=== PATIENT | female | born 1960 | race Caucasian/White ===

== ENCOUNTER 2016-12-04 16:48 | Emergency (ER) | payer BC ==
[~2016-12-04] VITALS: Ht 165.1 cm; Wt 122.5 kg
--- NOTE | ~2016-12-04 | CR72 ---
[facility] A Service of [facility] & [facility] RADIOLOGY TEXT RESULTS PATIENT: PORFIRIO REYES LOCATION: [facility] : 62 UNIT #: [id number] AGE: [address]: Mamadou Shaffer MD SEX: F ORDER DR: [id number] [facility] [address] [place], [place] [address] [id number] E MR#: [id number] Acc #: [id number] NAME: PORFIRIO REYES. : 1960 SEX: F STUDY DATE/TIME: 12/04/2016 18:26 UNIT: [facility] ROOM: STUDY DESCRIPTION: CR Chest Single View Portable Attending Physician: Mamadou Shaffer M.D. Ordering Physician: Mamadou Shaffer M.D. Primary Care Physician: Leni Law M.D. MEDICAL IMAGING REPORT This report is preliminary unless electronic signature is present EXAM Portable chest radiograph. INDICATION Shortness of breath with activity starting December 04, 2016. FINDINGS The patient does appear to have some cardiomegaly but I do not see any evidence of vascular congestion. No pneumothorax or pleural effusion is seen. Overall lung volumes appear diminished. Dictated by... Guillermina Curry M.D. THIS IS AN ELECTRONICALLY VERIFIED REPORT Guillermina Curry M.D. at 12/05/2016 5:46 PM AFF/tmw TD: 12/05/2016 11:26 JOB #: [id number] MEDICAL IMAGING REPORT Page 1 of 1 COPY
--- NOTE | ~2016-12-04 | EKG ---
PATIENT: PORFIRIO REYES UNIT #: [id number] Ventricular Rate: 89 BPM Atrial Rate: 89 BPM P-R Interval: 208 ms QRS Duration: 78 ms Q-T Interval: 392 ms QTC Calculation(Bezet): 476 ms P Superior: 14 degrees Calculated R Superior: 73 degrees Calculated T Superior: 46 degrees Diagnosis Line: Normal sinus rhythm Diagnosis Line: Low voltage QRS Diagnosis Line: Poor R wave progression questionable lead position Diagnosis Line: or body habitus Cannot rule out Septal infarct Diagnosis Line: Borderline ECG Diagnosis Line: No previous ECGs available Diagnosis Line: Confirmed by LEE BELTRAN MD ([id number]) on 12/05/2016 Diagnosis Line: 5:08:14 PM INTERPRETING MD: RUBY LOPEZ
[~2016-12-04 16:48] MED LIST: NABUMETONE500 M1 PO
[2016-12-04 18:24] LABS: POC - CKMB 1.4 ng/mL (0.0-7.9); POC - TROPONIN <0.05 ng/mL (<=0.05)
[2016-12-04 18:25] LABS: BASOPHIL# 0.1 X10e3 (0-0.3); BASOPHIL% 0.6 % (0-2.5); EOSINOPHIL# 0.1 X10e3 (0-0.7); EOSINOPHIL% 1.2 % (0.0-7.0); HEMATOCRIT 37.7 % (35.0-45.0); HEMOGLOBIN 12.5 gm/dL (12.0-16.0); LYMPHOCYTE# 2.1 X10e3 (1.0-3.5); LYMPHOCYTE% 25.8 % (17.0-45.0); MEAN CELL VOLUME 86.2 FL (83-96); MEAN CORPUSCULAR HEMOGLOBIN 28.6 PG (28-34); MEAN CORPUSCULAR HGB CONC 33.2 g/dL (30-36); MEAN PLATELET VOLUME 8.1 FL (6.5-11.5); MONOCYTE# 0.6 X10e3 (0-1.0); MONOCYTE% 7.4 % (3.0-12.0); NEUTROPHIL# 5.4 X10e3 (1.5-7.1); PLATELET COUNT 270 X10e3 (140-420); RED BLOOD COUNT 4.37 X10e (3.90-5.30); RED CELL DISTRIBUTION WIDTH 13.3 % (11.0-15.5); WHITE BLOOD COUNT 8.3 X10e3 (4.0-10.5)
[2016-12-04 18:30] LABS: DIFF IND NO
[2016-12-04 18:44] LABS: BUN/CREATININE RATIO 18.57; CREATININE SERUM 0.7 mg/dL (0.6-1.4); GLOM FILT RATE Estimated 98.2 mL/min (>60); POTASSIUM 4.1 mmol/L (3.5-5.1)
[2016-12-04 20:18] LABS: POC - CKMB 1.3 ng/mL (0.0-7.9); POC - TROPONIN <0.05 ng/mL (<=0.05)
== END 2016-12-04 20:34 | disposition home or self-care (01) ==
LOC: CED 16:48
PROVIDERS: Emergency Medicine
DX: M79.602 Pain in left arm (principal); E11.9 Type 2 diabetes mellitus without complications; I10 Essential (primary) hypertension; Z98.51 Tubal ligation status; Z79.899 Other long term (current) drug therapy; Z88.2 Allergy status to sulfonamides
CPT/HCPCS: 36415; 71010; 80048; 82553; 84484; 85025; 93005; 99284